=== PATIENT | male | born 1990 | race Caucasian/White ===

== ENCOUNTER 2025-04-01 18:58 | Emergency (ER) | payer OTHER, SELFPAY ==
[2025-04-01 19:01] VITALS: BP 153/109
[2025-04-01 19:06] VITALS: BMI 43.6
[2025-04-01 19:48] LABS: Hematocrit 41.8 % (39.0-52.0); Hemoglobin 14.8 g/dL (13.0-18.0); Mean Corp Hgb Conc. 35.4 g/dL (33.0-37.0); Mean Corpuscular Volume 93.7 fL (80.0-94.0); Nucleated Red Blood Cells % 0 % (-); Red Cell Dist. Width 12.3 % (11.5-14.5)
[2025-04-01 20:03] LABS: ALT (SGPT) 245 U/L (0-50); AST (SGOT) 269 U/L (17-59); Albumin 4.8 g/dl (3.5-5.0); Alkaline Phosphatase 77 U/L (38-126); Blood Urea Nitrogen 12 mg/dl (9-20); Calcium 10.0 mg/dl (8.4-10.2); Carbon Dioxide 22 mmol/L (22-30); Chloride 103 mmol/L (98-107); Estimated Creatinine Clearance > 125 ml/min; Glucose 170 mg/dl (70-99); Platelet Count 183 10^3/uL (130-400); Potassium 4.5 mmol/L (3.5-5.1); Sodium 138 mmol/L (135-145); Total Protein 8.7 g/dl (6.3-8.2); eGFR > 60.00
[2025-04-01 20:15] LABS: Troponin I < 0.012 ng/ml
[2025-04-01 20:50] VITALS: BP 125/71
[2025-04-01 21:00] VITALS: BP 136/74
[2025-04-01 21:47] LABS: D-Dimer < 0.27 ug/mlFEU (0.00-0.50)
--- NOTE | 2025-04-01 22:17 | ED.GENMED ---
History of Present Illness
General
Chief Complaint: Cardiac Symptoms
Source: patient
Time Seen by Provider: 04/01/25 20:15
Nursing documentation reviewed up to this point in time: agreed with
History of Present Illness
History of Present Illness:
Note:
CHIEF COMPLAINT(S)
Heart palpitations, chest pain, shortness of breath.
HISTORY OF PRESENT ILLNESS
The patient is a 34-year-old male presenting with heart palpitations, chest pain, and shortness of breath that began 4 to 5 hours prior to arrival. The patient stated, �It got to the point where I think I needed to come here because it was kind of
scaring me.� He has a history of hypertension and previously noted high blood sugar levels. The patient was prescribed a medication for his elevated blood sugar but has not started it due to advice from another physician regarding potential
gastrointestinal side effects. He also mentioned experiencing vomiting issues unrelated to current symptoms.
SOCIAL HISTORY
The patient smokes tobacco and uses alcohol daily, reporting consumption of 10 to 12 beers on five days out of the week. He denies caffeine and illicit drug use. The patient is currently in between jobs.
REVIEW OF SYSTEMS
- Cardiovascular: Heart palpitations, chest pain.
- Respiratory: Shortness of breath.
PHYSICAL EXAM
General: Alert, no acute distress.
Skin: Warm, dry.
Head: Normocephalic, atraumatic.
Neck: Supple, trachea midline.
Eyes, Ears, Nose, Mouth, and Throat: Oral mucosa moist.
Cardiovascular: Normal peripheral perfusion, No edema. Heart sounds were normal with no abnormalities noted.
Respiratory: Respirations are non-labored.
Gastrointestinal: Abdomen nondistended
Back: Normal range of motion, Normal alignment.
Musculoskeletal: Normal ROM, normal strength.
Neurological: Alert and oriented to person, place, time, and situation. No focal neurological deficit observed.
Psychiatric: Cooperative, appropriate mood & affect.
PLAN
The patient will be monitored for heart activity, and a blood test to check for potential blood clots will be administered. Depending on the results, a CT scan of the chest may be performed for further evaluation if indicated.
DIFFERENTIAL DIAGNOSIS
The Differential Diagnosis includes, in no particular order and is not limited to:
1. Myocardial infarction
2. Pulmonary embolism
3. Cardiac arrhythmia
4. Hypertensive crisis
5. Anxiety disorder
6. Gastroesophageal reflux disease
7. Heart failure
8. Pericarditis
9. Cocaine or stimulant use (unlikely due to patient denial)
10. Panic attack
Disposition:
SUMMARY OF ENCOUNTER
The patient, a 34-year-old male, presented with heart palpitations and associated shortness of breath. Given his daily heavy alcohol consumption and history of hypertension, a thorough evaluation was undertaken. Laboratories included a B-type
natriuretic peptide (BNP) and D-dimer, both of which returned negative, ruling out significant heart failure or a pulmonary embolism. A chest x-ray was interpreted as normal, and all other laboratory tests also returned within normal limits.
DISPOSITION
Discharge.
PLAN
The patient will be monitored through outpatient cardiology follow-up to manage ongoing palpitations and to explore underlying causes further.
INDEPENDENT REVIEW OF LABS AND INTERPRETATION OF TESTS
My independent review of the chest x-ray is normal. My independent review of the BNP is negative. My independent review of the D-dimer is negative.
PATIENT EDUCATION AND COUNSELING
Discussed the importance of reducing alcohol consumption, considering its impact on heart health, and the need for following up with cardiology to address the palpitations.
FOLLOW-UP INSTRUCTIONS
The patient is instructed to schedule a follow-up appointment with cardiology for further evaluation and management.
MEDICAL DECISION MAKING
- Number and Complexity of Problems Addressed: Chronic conditions affecting care include hypertension. Differential diagnosis includes myocardial infarction, pulmonary embolism, cardiac arrhythmia, hypertensive crisis, anxiety disorder,
gastroesophageal reflux disease, heart failure, pericarditis, cocaine or stimulant use, and panic attack.
- Data:
Category 1: Tests and documents reviewed include BNP, D-dimer, and chest x-ray.
- Risk:
Consideration of Admission/Observation: Escalation of care including admission/observation was considered given the complexity and risk of the patients presenting complaint, exam findings, and/or their underlying comorbidities. However, ultimately I
feel the patient is safe for outpatient management with close follow-up. Reasoning: Work-up reassuring, does not reveal any acute life/organ-threatening processes, patients symptoms well controlled upon reevaluation, reexamination is reassuring,
vitals are stable, patient agreeable with discharge, reliable for follow-up.
DIAGNOSIS
Palpitations (R00.2).
Past History
Past History
ED Past Medical History: HTN and Psychiatric (anxiety)
ED Past Surgical History: None
Social History
Tobacco: Smoker
Personal: Single
Living: with family
Employment: Employed
Phy Exam
General Physical Exam
General Presentation: well appearing and no apparent distress
General Skin: warm and dry
General Habitus: normal
General Mental: alert
General Hydration: appears well hydrated
ENT Exam
ENT Exam: EOMI, pharynx normal, neck supple and normocephalic
Eye Exam
Eye Exam: PERRL, cornea clear and conjunctiva normal
Cardiovascular Exam
Cardiovascular Exam: regular rate/rhythm, no edema, no murmur and normal peripheral pulses
Pulmonary Exam
Pulmonary Exam: lungs clear, no respiratory distress, no rales, no crackles, no rhonchi, no stridor, no wheezing and no cough
Gastrointestinal Exam
Gastrointestinal Exam: normal bowel sounds, non tender, soft, no organomegaly, no pulsatile mass and non distended
Neurological Exam
Neurological Exam: alert, oriented x3, no motor deficits and speech normal
Musculoskeletal Exam
Musculoskeletal Exam: full ROM and no edema
Skin Exam
Skin Exam: normal color, warm/dry, no rash and no petechia
Psychiatric Exam
Psychiatric Exam: normal mood/affect
Course
Orders/Labs/Results
Orders:
Orders
04/01/25 19:03
EKG [Electrocardiogram (*1)] Urgent
Reason for Study: Palpitations
04/01/25 19:04
EKG- Treatment ONCE
04/01/25 19:29
Complete Blood Count/With Diff Urgent
Comprehensive Metabolic Panel Urgent
Troponin I Urgent
04/01/25 20:57
D-Dimer Urgent
04/01/25 21:50
CXR2 [CR Chest - 2 Views ] Urgent
Comment:
Reason For Exam: chest pain
Abnormal Lab Results
04/01/25
19:29
RBC 4.46 L 10^6/uL
(4.70-6.10)
MCH 33.2 H pg
(27.0-31.0)
Absolute Monos (auto) 0.7 H 10^3/uL
(0.1-0.6)
Lymphocytes % 20.4 L %
(20.5-51.1)
Creatinine 0.6 L mg/dL
(0.7-1.3)
Glucose 170 H mg/dl
(70-99)
Total Bilirubin 2.2 H mg/dl
(0.2-1.3)
AST 269 H U/L
(17-59)
ALT 245 H U/L
(0-50)
Total Protein 8.7 H g/dl
(6.3-8.2)
04/01/25 19:29
04/01/25 19:29
Vital Signs
Initial and Last Documented VS:
Initial Vital Signs
Temp Pulse Resp BP Pulse Ox
98.9 F 110 20 153/109 97
04/01/25 19:01 04/01/25 19:01 04/01/25 19:01 04/01/25 19:01 04/01/25 19:01
Last Documented Vital Signs
Temp Pulse Resp BP Pulse Ox
98.6 F 84 16 136/74 95
04/01/25 20:50 04/01/25 21:15 04/01/25 21:00 04/01/25 21:00 04/01/25 21:15
*Radiology
Radiology exam reviewed: all reviewed NAD by ED Provider
*Pulse Oximetry
SaO2: 95
Oxygen Mode of Delivery: Room air
Patient hypoxic: no
*Critical Care Note
Total Time (30-74mins, 75-104mins- exclusive of procedures): Not Applicable
ED Attending Note
-
Portions of this chart may have been created with voice recognition software.� Occasional wrong word or��sound alike� substitutions may have occurred due to the inherent limitations of voice recognition software.
Discharge Plan
Departure
Patient Disposition: Home (Routine Discharge)
Date of Disposition: 04/01/25
Time of Disposition: 22:18
Patient with high blood pressure during this ER visit?: Yes
Discharge Problem:
Heart palpitations, Alcohol abuse, Engages in vaping
Instructions: Vaping, Alcohol use disorder - ED discharge instructions, BLOOD PRESSURE, Heart Palpitations
Prescriptions:
No Action
metoprolol succinate 100 mg Tablet Extended Release 24 Hr
100 mg PO DAILY
pantoprazole 40 mg Tablet,Delayed Release (Dr/Ec)
40 mg PO DAILY
lisinopril-hydrochlorothiazide 20-25 mg Tablet
1 tab PO DAILY
Referrals:
Mayur Lazcano MD [Family Provider, Family Practice]
Activity Restrictions/Additional Instructions:
Thank You for choosing [facility].
It was a pleasure meeting you and taking part in your care. We hope for your continued healing and wellness.
Please read discharge instructions in their entirety. However, they are for general education and may not describe your exact diagnosis at discharge. Information on your ER visit and medical conditions were discussed with you along with appropriate
follow up information...
If indicated, please take your medications as instructed and indicated on discharge paperwork.
Please schedule a follow up appointment as directed. Call to schedule an appointment
Please return to the emergency department with ANY change in, persisting, or worsening of symptoms. If any of your symptoms do not improve, or persist, or become more severe within 6-12 hours, please return to the emergency department for further
care.
Please return to the emergency department if you develop a headache, neck pain/stiffness, fever greater than 100.4F, chest pain, shortness of breath, persistent nausea, vomiting, slurred speech, difficulty walking, numbness/tingling, weakness, signs
of infection or any other symptoms that are worrisome to you.
If you have any questions or concerns please do not hesitate to call the Hospital at
Interventions
Interventions:
*Risk Screen - Suicide Last Done: 04/01/25 19:01
*General Assessment Last Done: 04/01/25 19:01
*Neglect/Abuse Screening Last Done: 04/01/25 19:01
*ED- Fall Risk Assessment Last Done: 04/01/25 20:45
*ED COVID-19 Vaccine History Last Done: 04/01/25 20:45
ED- Pulmonary Assessment Last Done: 04/01/25 20:46
ED- Cardiac Assessment Last Done: 04/01/25 20:46
Discharge Date and Time
Print Language: CITIZEN [place]
[2025-04-01 22:20] VITALS: BP 135/88
== END 2025-04-01 22:33 | disposition home or self-care (01) ==
LOC: EMR 18:58
PROVIDERS: Emergency Medicine; EMERGENCY PHYSICIAN Student in an Organized Health Care Education/Training Program; FAMILY PHYSICIAN Family Medicine
DX: R00.2 Palpitations (principal); F10.10 Alcohol abuse, uncomplicated; F17.200 Nicotine dependence, unspecified, uncomplicated; I10 Essential (primary) hypertension
CPT/HCPCS: 99283; 71046; 80053; 84484; 85025; 85379; 93005